=== PATIENT | female | born 1985 | race Caucasian/White ===

== ENCOUNTER 2017-04-07 17:52 | Inpatient (IN) | payer MEDICAID ==
[~2017-04-07] VITALS: Ht 154.9 cm; Wt 54.5 kg
[~2017-04-07 17:52] MED LIST: ATI1T PO; INSU100I8 SQ; LANTUS SQ; SODI650T29 PO; ZOF4I PO
[2017-04-07] MEDS ORDERED: normal saline 1000ML IV soln IV ONE (18:05)
[2017-04-07] MEDS ORDERED: ondansetron/PF 4mg/2ml inj IV ONE (18:05)
[2017-04-07 18:34] LABS: BASOPHILS % (AUTO) 0 % (0-1); EOSINOPHILS # (AUTO) 0.2 X10'3 (0-0.9); EOSINOPHILS % (AUTO) 1.1 % (0-6); HEMATOCRIT 47.1 % (35.0-45.0); HEMOGLOBIN 15.4 g/dl (12.0-16.0); LYMPHOCYTES % (AUTO) 5.1 % (21-51); MEAN CORPUSCULAR HEMOGLOBIN 30.1 PG (27.0-31.0); MEAN CORPUSCULAR HGB CONC 32.7 % (33.0-36.5); MEAN PLATELET VOLUME 7.8 FL (7.4-10.4); MONOCYTES % (AUTO) 5.1 % (2-12); NEUTROPHILS # (AUTO) 17.8 X10'3 (1.8-7.7); NEUTROPHILS % (AUTO) 88.7 % (42-75); PLATELET COUNT 409 X10'3 (140-440); RED BLOOD COUNT 5.12 X10'6 (4.20-5.60); RED CELL DISTRIBUTION WIDTH 14.9 % (11.5-14.5); WHITE BLOOD COUNT 20.1 X10'3 (4.5-11.0)
[2017-04-07 18:43] LABS: PROTHROMBIN TIME 10.2 SECONDS (9.0-12.0)
[2017-04-07 19:01] LABS: ALANINE AMINOTRANSFERASE 30 U/L (12-78); ALBUMIN 4.2 G/DL (3.4-5.0); ALKALINE PHOSPHATASE 110 IU/L (46-116); ANION GAP 27 (8-16); ASPARTATE AMINO TRANSFERASE 31 U/L (10-37); BILIRUBIN,TOTAL 0.7 MG/DL (0.1-1.0); BLOOD UREA NITROGEN 20 MG/DL (7-18); BUN/CREATININE RATIO 14.1 (6.6-38.0); CHLORIDE 93 MMOL/L (99-107); CREATININE 1.42 MG/DL (0.40-0.90); LIPASE 84 U/L (73-393); POTASSIUM 4.2 MMOL/L (3.5-5.1); SODIUM 128 MMOL/L (135-145); TOTAL PROTEIN 8.6 G/DL (6.4-8.2); eGFR 43 ML/MIN
[2017-04-07 19:03] LABS: ETHANOL < 0.010 GM/DL (0.0-0.010)
[2017-04-07 19:04] LABS: GLUCOSE 465 MG/DL (70-104); TOTAL CARBON DIOXIDE 8.4 MMOL/L (24-32)
[2017-04-07 19:23] LABS: TOTAL CELLS COUNTED 100
[2017-04-07 19:24] LABS: LARGE PLATELETS FEW; PLATELET ESTIMATE NORMAL
[2017-04-07] MEDS ORDERED: insulin regular, human 10 units/0.1 ml syringe SQ PRN (19:35)
[2017-04-07 20:01] LABS: MAGNESIUM 2.1 MG/DL (1.5-2.4); PHOSPHORUS 4.5 MG/DL (2.3-4.5)
[2017-04-07] MEDS: insulin regular, DKA only 100 UNIT in normal saline 100ml IV soln 99 ML IV SCH ×4 (20:01→22:15)
[2017-04-07] MEDS ORDERED: CefTRIAXone 2gm/NS 100ml IVPB 100 ML IV ONE (20:25)
[2017-04-07] MEDS ORDERED: NAPR500T4 PO (20:38)
[2017-04-07 20:45] LABS: ABG BASE EXCESS -19.3 mmol/L (-2.0-3.0); ABG HCO3 6.9 mmol/L (22.0-26.0); ABG OXYGEN SATURATION 97.9 % (95-98); ABG PCO2 (T) 18.9 mmHg (32.0-45.0); ABG PH (T) 7.182 (7.350-7.450); ALLEN'S TEST Positive; FCOHb 0.6 % (0.5-1.5); FMetHb 0.2 % (0.3-1.12); FO2Hb 97.1 % (94-100); PATIENT TEMPERATURE 36.9; TOTAL HEMOGLOBIN 13.3 G/dl (12.0-16.0)
[2017-04-07] MEDS ORDERED: temazepam 15mg capsule PO PRN (21:00)
[2017-04-07] MEDS ORDERED: dextrose 50%-water 50ml dispensing syringe IV PRN ×2 (22:10)
[2017-04-07] MEDS ORDERED: mag hydrox/Alum hydrox/simeth 30ml oral suspension PO PRN (22:10)
[2017-04-07] MEDS ORDERED: diphenhydrAMINE 50 mg/ml inj IV PRN (22:10)
[2017-04-07] MEDS ORDERED: acetaminophen 650mg rectal suppository RC PRN (22:10)
[2017-04-07] MEDS ORDERED: ondansetron/PF 4mg/2ml inj IV PRN (22:10)
[2017-04-07] MEDS ORDERED: diphenhydrAMINE 25mg capsule PO PRN (22:10)
[2017-04-07] MEDS ORDERED: glucagon, human recombinant 1mg kit SUBCUT PRN (22:10)
[2017-04-07] MEDS ORDERED: HYDROcodone/acetaminophen 5mg/325mg tablet PO PRN (22:10)
[2017-04-07] MEDS ORDERED: bisacodyl 10mg suppository rectal RC PRN (22:10)
[2017-04-07] MEDS ORDERED: MESSAGE TO PHARMACY PO ONE (22:10)
[2017-04-07] MEDS ORDERED: dextrose ORAL solution 15 GM/59 ML bottle PO PRN ×2 (22:10)
[2017-04-07] MEDS ORDERED: magnesium hydroxide 30ml (MOM) UD suspension PO PRN (22:10)
[2017-04-07] MEDS ORDERED: acetaminophen 325mg tablet PO PRN (22:10)
[2017-04-07] MEDS ORDERED: metoclopramide 5 mg/ml inj IV PRN (22:10)
[2017-04-07] MEDS ORDERED: dextrose 5%-1/2 normal saline 1,000 ML IV SCH (22:50)
[2017-04-08] VITALS (7 sets, daily range): BP systolic 83–108; BP diastolic 47–72
[2017-04-08] MEDS: normal saline 1000ml 1,000 ML IV SCH ×3 (00:55→18:06)
[2017-04-08] MEDS: azithromycin 250mg tablet PO SCH ×2 (01:04→21:17)
[2017-04-08] MEDS: potassium CL 20mEq in D5-1/2NS 1,000 ML IV SCH ×2 (01:44→08:23)
[2017-04-08 02:10] LABS: URINE HCG NEGATIVE (NEG)
[2017-04-08 02:11] LABS: CLARITY,URINE Clear (Clear); COLOR,URINE Yellow (Yellow); GLUCOSE, URINE >=1000 mg/dl (Neg); KETONES,URINE >=160 mg/dl (Neg); LEUKOCYTE ESTERASE ,URINE Negative (Neg); NITRITES, URINE Negative (Neg); OCCULT BLOOD,URINE Trace (Neg); PROTEIN,URINE 30 mg/dl (Neg); UROBILINOGEN,URINE 0.2 E.U/dL (0.2-1.0)
[2017-04-08 02:15] LABS: URINE AMPHETAMINE SCREEN NEGATIVE (Neg); URINE BARBITUATE SCREEN NEGATIVE (Neg); URINE BENZODIAZEPINES SCREEN NEGATIVE (Neg); URINE CANNABINOID SCREEN NEGATIVE (Neg); URINE COCAINE SCREEN POSITIVE (Neg); URINE METHADONE SCREEN NEGATIVE (Neg); URINE OPIATE SCREEN POSITIVE (Neg); URINE PHENCYCLIDINE SCREEN NEGATIVE (Neg)
[2017-04-08 02:17] LABS: UA COLLECTION TYPE CLN CATCH MIDSTREAM
[2017-04-08 02:24] LABS: FINE GRANULAR CAST 0-3 /LPF (NEGATIVE)
[2017-04-08 02:25] LABS: BACTERIA,URINE NONE SEEN /HPF (Neg); MUCUS STRANDS FEW /LPF (Neg); RBC,URINE 0-2 /HPF (0-2); SQUAMOUS EPITHELIAL CELL,UR MODERATE /LPF (FEW); WBC,URINE 0-4 /HPF (0-4)
[2017-04-08 03:19] LABS: ALANINE AMINOTRANSFERASE 21 U/L (12-78); ALBUMIN 2.7 G/DL (3.4-5.0); ALBUMIN/GLOBULIN RATIO 0.9 (1.1-1.5); ALKALINE PHOSPHATASE 68 IU/L (46-116); ANION GAP 9 (8-16); ASPARTATE AMINO TRANSFERASE 15 U/L (10-37); BILIRUBIN,TOTAL 0.2 MG/DL (0.1-1.0); BLOOD UREA NITROGEN 13 MG/DL (7-18); BUN/CREATININE RATIO 15.1 (6.6-38.0); CALCIUM 6.8 MG/DL (8.5-10.1); CHLORIDE 110 MMOL/L (99-107); CREATININE 0.86 MG/DL (0.40-0.90); GLUCOSE 222 MG/DL (70-104); PHOSPHORUS 1.7 MG/DL (2.3-4.5); POTASSIUM 3.5 MMOL/L (3.5-5.1); SODIUM 137 MMOL/L (135-145); TOTAL PROTEIN 5.7 G/DL (6.4-8.2); eGFR 76 ML/MIN
[2017-04-08] MEDS ORDERED: sodium phosphate inj. 30 MMOL in dextrose 5%-water 250 ML IV PRN (04:25)
[2017-04-08] MEDS ORDERED: Neutra Phos packet PO PRN (04:25)
[2017-04-08] MEDS ORDERED: sodium phosphate inj. 15 MMOL in dextrose 5%-water 150 ML IV PRN (04:25)
[2017-04-08 07:03] LABS: BASOPHILS % (AUTO) 0.2 % (0-1); EOSINOPHILS # (AUTO) 0.2 X10'3 (0-0.9); EOSINOPHILS % (AUTO) 2.1 % (0-6); HEMATOCRIT 36.4 % (35.0-45.0); HEMOGLOBIN 12.1 g/dl (12.0-16.0); LYMPHOCYTES % (AUTO) 17.9 % (21-51); MEAN CORPUSCULAR HEMOGLOBIN 30.5 PG (27.0-31.0); MEAN CORPUSCULAR HGB CONC 33.2 % (33.0-36.5); MEAN CORPUSCULAR VOLUME 91.9 FL (78-98); MEAN PLATELET VOLUME 7.9 FL (7.4-10.4); MONOCYTES % (AUTO) 8.6 % (2-12); NEUTROPHILS # (AUTO) 8.1 X10'3 (1.8-7.7); NEUTROPHILS % (AUTO) 71.2 % (42-75); PLATELET COUNT 334 X10'3 (140-440); RED BLOOD COUNT 3.96 X10'6 (4.20-5.60); RED CELL DISTRIBUTION WIDTH 14.5 % (11.5-14.5); WHITE BLOOD COUNT 11.4 X10'3 (4.5-11.0)
[2017-04-08] MEDS: methylPREDNISolone sod succ 125mg/2ml vial IV SCH ×2 (07:12→20:00)
[2017-04-08] MEDS: lactobacillus rhamnosus 10,000 MMU CELLS/CAPSULE PO SCH ×2 (07:12→17:33)
[2017-04-08] MEDS: docusate sod 100mg capsule PO SCH ×2 (07:16→21:17)
[2017-04-08] MEDS: heparin, porcine 5000 units/ml vial SQ SCH ×2 (07:16→21:16)
[2017-04-08] MEDS ORDERED: pantoprazole 40mg Tablet.DR PO SCH (07:30)
[2017-04-08] MEDS: insulin Lispro (HumaLOG) vial - multi-dose SQ SCH ×4 (09:13→22:08)
[2017-04-08] MEDS: pantoprazole 40 MG vial IV SCH (11:45)
[2017-04-08] MEDS: mag hydrox/Alum hydrox/simeth 30ml oral suspension PO SCH ×3 (11:45→21:18)
[2017-04-08] MEDS: HYDROcodone/acetaminophen 10/325mg tab PO PRN ×2 (13:45→17:59)
[2017-04-08] MEDS: cefTRIAXone 1g/NS 100ml IVPB 100 ML IV SCH (21:17)
[2017-04-08] MEDS ORDERED: Potassium Cl inj 20 MEQ in dextrose 5%-1/2 normal saline 990 ML IV SCH (22:50)
[2017-04-09 03:00] VITALS: BP 91/53
[2017-04-09] MEDS: normal saline 1000ml 1,000 ML IV SCH ×7 (04:06→21:11)
[2017-04-09] MEDS: HYDROcodone/acetaminophen 10/325mg tab PO PRN (04:18)
[2017-04-09 06:00] VITALS: BP 82/45
[2017-04-09 06:23] LABS: BASOPHILS % (AUTO) 0.1 % (0-1); EOSINOPHILS # (AUTO) 0.1 X10'3 (0-0.9); HEMATOCRIT 40.4 % (35.0-45.0); HEMOGLOBIN 13.3 g/dl (12.0-16.0); LYMPHOCYTES # (AUTO) 0.5 X10'3 (1.1-4.8); LYMPHOCYTES % (AUTO) 3.5 % (21-51); MEAN CORPUSCULAR HEMOGLOBIN 30.8 PG (27.0-31.0); MEAN CORPUSCULAR VOLUME 93.4 FL (78-98); MEAN PLATELET VOLUME 8.2 FL (7.4-10.4); MONOCYTES # (AUTO) 0.1 X10'3 (0-0.9); MONOCYTES % (AUTO) 0.9 % (2-12); NEUTROPHILS % (AUTO) 94.5 % (42-75); PLATELET COUNT 335 X10'3 (140-440); RED BLOOD COUNT 4.32 X10'6 (4.20-5.60); RED CELL DISTRIBUTION WIDTH 15.2 % (11.5-14.5); WHITE BLOOD COUNT 14.8 X10'3 (4.5-11.0)
[2017-04-09 06:56] LABS: ALANINE AMINOTRANSFERASE 30 U/L (12-78); ALBUMIN 2.9 G/DL (3.4-5.0); ALBUMIN/GLOBULIN RATIO 0.9 (1.1-1.5); ALKALINE PHOSPHATASE 76 IU/L (46-116); ANION GAP 23 (8-16); ASPARTATE AMINO TRANSFERASE 19 U/L (10-37); BILIRUBIN,TOTAL 0.4 MG/DL (0.1-1.0); BLOOD UREA NITROGEN 13 MG/DL (7-18); BUN/CREATININE RATIO 17.8 (6.6-38.0); CALCIUM 8.1 MG/DL (8.5-10.1); CHLORIDE 104 MMOL/L (99-107); CREATININE 0.73 MG/DL (0.40-0.90); GLUCOSE 431 MG/DL (70-104); POTASSIUM 4.2 MMOL/L (3.5-5.1); SODIUM 137 MMOL/L (135-145); TOTAL PROTEIN 6.3 G/DL (6.4-8.2); eGFR > 90 ML/MIN
[2017-04-09 07:05] LABS: TOTAL CARBON DIOXIDE 10.3 MMOL/L (24-32)
[2017-04-09] MEDS: mag hydrox/Alum hydrox/simeth 30ml oral suspension PO SCH ×4 (07:38→21:06)
[2017-04-09] MEDS: docusate sod 100mg capsule PO SCH ×2 (07:38→21:05)
[2017-04-09] MEDS: methylPREDNISolone sod succ 125mg/2ml vial IV SCH (07:38)
[2017-04-09] MEDS: pantoprazole 40 MG vial IV SCH (07:39)
[2017-04-09] MEDS: lactobacillus rhamnosus 10,000 MMU CELLS/CAPSULE PO SCH ×2 (07:39→16:40)
[2017-04-09] MEDS: heparin, porcine 5000 units/ml vial SQ SCH ×2 (07:46→21:07)
[2017-04-09] MEDS ORDERED: Neutra Phos packet PO PRN (08:10)
[2017-04-09] MEDS ORDERED: sodium phosphate inj. 30 MMOL in dextrose 5%-water 250 ML IV PRN (08:10)
[2017-04-09] MEDS ORDERED: potassium CL 20mEq in D5-1/2NS 1,000 ML IV PRN (08:10)
[2017-04-09] MEDS ORDERED: sodium bicarbonate (8.4%) inj. 50 MEQ in sodium chloride 0.45% 500ml 250 ML IV PRN (08:10)
[2017-04-09] MEDS ORDERED: potassium Cl 20 mEq SR tablet PO PRN ×2 (08:10)
[2017-04-09] MEDS ORDERED: insulin regular, human 10 units/0.1 ml syringe SQ PRN (08:10)
[2017-04-09] MEDS ORDERED: potassium Cl 40MEQ/NS 500ml 500 ML IV PRN ×2 (08:10)
[2017-04-09] MEDS ORDERED: sodium bicarbonate (8.4%) inj. 100 MEQ in sodium chloride 0.45% 500ml 500 ML IV PRN (08:10)
[2017-04-09] MEDS ORDERED: sodium phosphate inj. 15 MMOL in dextrose 5%-water 150 ML IV PRN (08:10)
[2017-04-09 09:37] LABS: ALBUMIN 3.4 G/DL (3.4-5.0); ANION GAP 25 (8-16); BLOOD UREA NITROGEN 16 MG/DL (7-18); CALCIUM 8.2 MG/DL (8.5-10.1); CHLORIDE 100 MMOL/L (99-107); CREATININE 0.94 MG/DL (0.40-0.90); PHOSPHORUS 2.9 MG/DL (2.3-4.5); POTASSIUM 4.6 MMOL/L (3.5-5.1); SODIUM 132 MMOL/L (135-145); eGFR 69 ML/MIN
[2017-04-09 09:41] LABS: GLUCOSE 509 MG/DL (70-104); TOTAL CARBON DIOXIDE 7.1 MMOL/L (24-32)
[2017-04-09] MEDS: insulin regular, DKA only 100 UNIT in normal saline 100ml IV soln 99 ML IV SCH ×8 (09:49→19:13)
[2017-04-09] MEDS: LORazepam 0.5 MG tablet PO PRN (10:43)
[2017-04-09 11:00] VITALS: BP 100/48
[2017-04-09 13:09] LABS: ALBUMIN 3.2 G/DL (3.4-5.0); ANION GAP 23 (8-16); BLOOD UREA NITROGEN 18 MG/DL (7-18); BUN/CREATININE RATIO 17.3 (6.6-38.0); CALCIUM 7.7 MG/DL (8.5-10.1); CHLORIDE 104 MMOL/L (99-107); CREATININE 1.04 MG/DL (0.40-0.90); POTASSIUM 4.1 MMOL/L (3.5-5.1); SODIUM 134 MMOL/L (135-145); eGFR 61 ML/MIN
[2017-04-09 13:10] LABS: GLUCOSE 483 MG/DL (70-104); TOTAL CARBON DIOXIDE 7.1 MMOL/L (24-32)
[2017-04-09 15:00] VITALS: BP 100/49
[2017-04-09] MEDS ORDERED: dextrose 5%-1/2 normal saline 1,000 ML IV SCH (15:40)
[2017-04-09 15:57] LABS: ALBUMIN 2.6 G/DL (3.4-5.0); ANION GAP 11 (8-16); BLOOD UREA NITROGEN 14 MG/DL (7-18); BUN/CREATININE RATIO 18.4 (6.6-38.0); CALCIUM 7.3 MG/DL (8.5-10.1); CHLORIDE 113 MMOL/L (99-107); CREATININE 0.76 MG/DL (0.40-0.90); GLUCOSE 243 MG/DL (70-104); POTASSIUM 3.6 MMOL/L (3.5-5.1); SODIUM 139 MMOL/L (135-145); eGFR 88 ML/MIN
[2017-04-09 16:02] LABS: TOTAL CARBON DIOXIDE 14.6 MMOL/L (24-32)
[2017-04-09 17:04] LABS: PHOSPHORUS 0.9 MG/DL (2.3-4.5)
[2017-04-09 19:00] VITALS: BP 90/52
[2017-04-09 19:12] LABS: ALBUMIN 2.8 G/DL (3.4-5.0); ANION GAP 9 (8-16); BLOOD UREA NITROGEN 13 MG/DL (7-18); BUN/CREATININE RATIO 18.1 (6.6-38.0); CALCIUM 7.4 MG/DL (8.5-10.1); CHLORIDE 113 MMOL/L (99-107); CREATININE 0.72 MG/DL (0.40-0.90); GLUCOSE 174 MG/DL (70-104); POTASSIUM 3.5 MMOL/L (3.5-5.1); SODIUM 140 MMOL/L (135-145); TOTAL CARBON DIOXIDE 18.2 MMOL/L (24-32); eGFR > 90 ML/MIN
[2017-04-09] MEDS ORDERED: dextrose 50%-water 50ml dispensing syringe IV PRN ×2 (19:20)
[2017-04-09] MEDS ORDERED: glucagon, human recombinant 1mg kit SUBCUT PRN (19:20)
[2017-04-09] MEDS ORDERED: dextrose ORAL solution 15 GM/59 ML bottle PO PRN ×2 (19:20)
[2017-04-09] MEDS: insulin Lispro (HumaLOG) vial - multi-dose SQ SCH (19:35)
[2017-04-09] MEDS ORDERED: Insulin Detemir pen SQ SCH (21:00)
[2017-04-09] MEDS: azithromycin 250mg tablet PO SCH (21:06)
[2017-04-09] MEDS: cefTRIAXone 1g/NS 100ml IVPB 100 ML IV SCH (21:06)
[2017-04-09 21:51] LABS: ALBUMIN 2.5 G/DL (3.4-5.0); ANION GAP 8 (8-16); BLOOD UREA NITROGEN 13 MG/DL (7-18); BUN/CREATININE RATIO 21.7 (6.6-38.0); CALCIUM 7.1 MG/DL (8.5-10.1); CHLORIDE 111 MMOL/L (99-107); GLUCOSE 216 MG/DL (70-104); POTASSIUM 3.8 MMOL/L (3.5-5.1); SODIUM 138 MMOL/L (135-145); eGFR > 90 ML/MIN
[2017-04-09 23:00] VITALS: BP 94/57
[2017-04-10 03:00] VITALS: BP 103/64
[2017-04-10 05:56] LABS: BASOPHILS % (AUTO) 0.3 % (0-1); EOSINOPHILS # (AUTO) 0.2 X10'3 (0-0.9); EOSINOPHILS % (AUTO) 1.6 % (0-6); HEMATOCRIT 34.6 % (35.0-45.0); HEMOGLOBIN 11.4 g/dl (12.0-16.0); LYMPHOCYTES # (AUTO) 1.6 X10'3 (1.1-4.8); LYMPHOCYTES % (AUTO) 12.1 % (21-51); MEAN CORPUSCULAR HEMOGLOBIN 30.2 PG (27.0-31.0); MEAN CORPUSCULAR HGB CONC 32.8 % (33.0-36.5); MEAN CORPUSCULAR VOLUME 92.2 FL (78-98); MEAN PLATELET VOLUME 7.9 FL (7.4-10.4); MONOCYTES # (AUTO) 0.7 X10'3 (0-0.9); PLATELET COUNT 269 X10'3 (140-440); RED BLOOD COUNT 3.75 X10'6 (4.20-5.60); RED CELL DISTRIBUTION WIDTH 15.4 % (11.5-14.5); WHITE BLOOD COUNT 13.5 X10'3 (4.5-11.0)
[2017-04-10 06:00] VITALS: BP 96/60
[2017-04-10 06:29] LABS: ALANINE AMINOTRANSFERASE 19 U/L (12-78); ALBUMIN 2.4 G/DL (3.4-5.0); ALBUMIN/GLOBULIN RATIO 0.9 (1.1-1.5); ALKALINE PHOSPHATASE 57 IU/L (46-116); ANION GAP 9 (8-16); ASPARTATE AMINO TRANSFERASE 9 U/L (10-37); BILIRUBIN,TOTAL 0.2 MG/DL (0.1-1.0); BLOOD UREA NITROGEN 18 MG/DL (7-18); BUN/CREATININE RATIO 26.5 (6.6-38.0); CALCIUM 7.6 MG/DL (8.5-10.1); CHLORIDE 114 MMOL/L (99-107); CREATININE 0.68 MG/DL (0.40-0.90); GLUCOSE 157 MG/DL (70-104); PHOSPHORUS 1.7 MG/DL (2.3-4.5); POTASSIUM 3.5 MMOL/L (3.5-5.1); SODIUM 141 MMOL/L (135-145); TOTAL CARBON DIOXIDE 17.9 MMOL/L (24-32); TOTAL PROTEIN 5.2 G/DL (6.4-8.2); eGFR > 90 ML/MIN
[2017-04-10] MEDS ORDERED: K and/or MAG REPLACEMENT MC SCH (08:00)
[2017-04-10] MEDS: heparin, porcine 5000 units/ml vial SQ SCH (08:00)
[2017-04-10] MEDS: lactobacillus rhamnosus 10,000 MMU CELLS/CAPSULE PO SCH (08:26)
[2017-04-10] MEDS: pantoprazole 40 MG vial IV SCH (08:26)
[2017-04-10] MEDS: mag hydrox/Alum hydrox/simeth 30ml oral suspension PO SCH ×2 (08:26→11:19)
[2017-04-10] MEDS: docusate sod 100mg capsule PO SCH (08:26)
[2017-04-10] MEDS: insulin Lispro (HumaLOG) vial - multi-dose SQ SCH ×2 (08:44→13:17)
[2017-04-10] MEDS: normal saline 1000ml 1,000 ML IV SCH (08:55)
[2017-04-10 11:00] VITALS: BP 121/75
[2017-04-10] MEDS: LORazepam 0.5 MG tablet PO PRN (11:19)
[2017-04-10] MEDS ORDERED: AZI25OT PO (11:47)
[2017-04-10] MEDS ORDERED: AZIT-63 PO (11:47)
[2017-04-10] MEDS ORDERED: ATI1T PO (11:47)
[2017-04-11] MEDS ORDERED: LACTOBACILLUS RHAMNOSUS GG 15 billion unit sprinkle caps PO SCH (07:30)
== END 2017-04-10 15:00 | disposition home or self-care (01) | DRG 420 ==
LOC: ER 17:54 → ED HOLD 22:13 → EDBEDREQ 22:42 → PCU 3S 04-08 00:50
PROVIDERS: ADMIT Family Medicine; ATTEND Family Medicine
DX: E10.10 Type 1 diabetes mellitus with ketoacidosis without coma (principal); N17.0 Acute kidney failure with tubular necrosis; R65.11 Systemic inflammatory response syndrome (SIRS) of non-infectious origin with acute organ dysfunction; E87.4 Mixed disorder of acid-base balance; E10.42 Type 1 diabetes mellitus with diabetic polyneuropathy; G89.29 Other chronic pain; E87.1 Hypo-osmolality and hyponatremia; E86.1 Hypovolemia; E83.39 Other disorders of phosphorus metabolism; E86.0 Dehydration; E87.6 Hypokalemia; F41.1 Generalized anxiety disorder; J45.909 Unspecified asthma, uncomplicated; K29.70 Gastritis, unspecified, without bleeding; F14.90 Cocaine use, unspecified, uncomplicated; F12.90 Cannabis use, unspecified, uncomplicated; F17.210 Nicotine dependence, cigarettes, uncomplicated; Z79.4 Long term (current) use of insulin; Z79.899 Other long term (current) drug therapy; Z88.5 Allergy status to narcotic agent; Z83.3 Family history of diabetes mellitus; Z81.1 Family history of alcohol abuse and dependence
CPT/HCPCS: 36415; 36600; 71045; 80048; 80053; 80305; 80320; 81001; 81025; 82803; 82948; 83605; 83690; 83735; 84100; 84145; 84443; 85018; 85025; 85610; 87040; 87070; 93005; 94760; 96361; 96365; 96372; 96375; 96376; 99285; C9113; J0696; J1644; J1815; J2270; J2405; J2930; J7030; J7060

== ENCOUNTER 2017-05-27 04:52 | Inpatient (IN) | payer MEDICAID ==
[~2017-05-27] VITALS: Ht 154.9 cm; Wt 51.8 kg
[~2017-05-27 04:52] MED LIST changes: +AZI25OT PO; +NAPR500T4 PO; -SODI650T29 PO
[2017-05-27] MEDS ORDERED: insulin regular, DKA only 100 UNIT in normal saline 100ml IV soln 99 ML IV SCH ×2 (05:03)
[2017-05-27] MEDS ORDERED: normal saline 1000ML IV soln IV ONE (05:05)
[2017-05-27] MEDS ORDERED: insulin regular, human 10 units/0.1 ml syringe SQ PRN (05:05)
[2017-05-27 05:49] LABS: BASOPHILS % (AUTO) 0.2 % (0-1); EOSINOPHILS # (AUTO) 0.1 X10'3 (0-0.9); EOSINOPHILS % (AUTO) 1.3 % (0-6); HEMOGLOBIN 16.3 g/dl (12.0-16.0); LYMPHOCYTES # (AUTO) 1.3 X10'3 (1.1-4.8); LYMPHOCYTES % (AUTO) 13.8 % (21-51); MEAN CORPUSCULAR HEMOGLOBIN 30.1 PG (27.0-31.0); MEAN CORPUSCULAR HGB CONC 33.2 % (33.0-36.5); MEAN CORPUSCULAR VOLUME 90.7 FL (78-98); MEAN PLATELET VOLUME 7.4 FL (7.4-10.4); MONOCYTES # (AUTO) 0.5 X10'3 (0-0.9); MONOCYTES % (AUTO) 5.2 % (2-12); NEUTROPHILS # (AUTO) 7.7 X10'3 (1.8-7.7); NEUTROPHILS % (AUTO) 79.5 % (42-75); PLATELET COUNT 409 X10'3 (140-440); RED CELL DISTRIBUTION WIDTH 15.3 % (11.5-14.5); WHITE BLOOD COUNT 9.7 X10'3 (4.5-11.0)
[2017-05-27 06:02] LABS: ALANINE AMINOTRANSFERASE 22 U/L (12-78); ALBUMIN 4.5 G/DL (3.4-5.0); ALKALINE PHOSPHATASE 90 IU/L (46-116); ANION GAP 29 (8-16); ASPARTATE AMINO TRANSFERASE 12 U/L (10-37); BILIRUBIN,TOTAL 0.3 MG/DL (0.1-1.0); BLOOD UREA NITROGEN 15 MG/DL (7-18); BUN/CREATININE RATIO 13.6 (6.6-38.0); CALCIUM 8.8 MG/DL (8.5-10.1); CHLORIDE 93 MMOL/L (99-107); GLUCOSE 422 MG/DL (70-104); MAGNESIUM 2.1 MG/DL (1.5-2.4); PHOSPHORUS 4.6 MG/DL (2.3-4.5); POTASSIUM 4.6 MMOL/L (3.5-5.1); SODIUM 130 MMOL/L (135-145); TOTAL PROTEIN 9.1 G/DL (6.4-8.2); eGFR 58 ML/MIN
[2017-05-27] MEDS ORDERED: ketorolac trometh. 30mg/ml inj. IV ONE (06:05)
[2017-05-27 06:06] LABS: TOTAL CARBON DIOXIDE 8.4 MMOL/L (24-32)
[2017-05-27] MEDS ORDERED: BASAGLAR (06:20)
[2017-05-27] MEDS ORDERED: [UNRECOGNIZED DRUG - REMARK] (06:20)
[2017-05-27] MEDS ORDERED: [UNRECOGNIZED DRUG - OTHER] (06:20)
[2017-05-27] MEDS ORDERED: CEFDINIR 300 MG (06:20)
[2017-05-27] MEDS ORDERED: CLINDAMYCIN HCL 300 MG (06:20)
[2017-05-27 06:41] LABS: ABG BASE EXCESS -23.2 mmol/L (-2.0-3.0); ABG HCO3 4.1 mmol/L (22.0-26.0); ABG OXYGEN SATURATION 98.5 % (95-98); ABG PCO2 (T) 13.6 mmHg (32.0-45.0); ABG PH (T) 7.102 (7.350-7.450); ABG PO2 (T) 134.5 mmHg (83-108); ALLEN'S TEST Positive; FCOHb 0.9 % (0.5-1.5); FMetHb 0.3 % (0.3-1.12); FO2Hb 97.3 % (94-100)
[2017-05-27] MEDS ORDERED: potassium CL 20mEq in D5-1/2NS 1,000 ML IV SCH (07:05)
[2017-05-27] MEDS ORDERED: MESSAGE TO PHARMACY PO ONE (07:50)
[2017-05-27] MEDS ORDERED: glucagon, human recombinant 1mg kit SUBCUT PRN (07:50)
[2017-05-27] MEDS ORDERED: ondansetron/PF 4mg/2ml inj IV PRN (07:50)
[2017-05-27] MEDS ORDERED: magnesium hydroxide 30ml (MOM) UD suspension PO PRN (07:50)
[2017-05-27] MEDS ORDERED: dextrose ORAL solution 15 GM/59 ML bottle PO PRN ×2 (07:50)
[2017-05-27] MEDS ORDERED: insulin Lispro (HumaLOG) vial - multi-dose SQ SCH (07:50)
[2017-05-27] MEDS ORDERED: mag hydrox/Alum hydrox/simeth 30ml oral suspension PO PRN (07:50)
[2017-05-27] MEDS ORDERED: acetaminophen 325mg tablet PO PRN (07:50)
[2017-05-27] MEDS ORDERED: dextrose 50%-water 50ml dispensing syringe IV PRN ×2 (07:50)
[2017-05-27 08:32] LABS: CLARITY,URINE CLOUDY (Clear); COLOR,URINE STRAW (Yellow); GLUCOSE, URINE 500 mg/dl (Neg); KETONES,URINE >=80 mg/dl (Neg); LEUKOCYTE ESTERASE ,URINE NEGATIVE (Neg); NITRITES, URINE NEGATIVE (Neg); OCCULT BLOOD,URINE TRACE-INTACT (Neg); PH,URINE 5.5 (4.8-8.0); PROTEIN,URINE 30 mg/dl (Neg); URINE HCG NEGATIVE (NEG); UROBILINOGEN,URINE 0.2 E.U/dL (0.2-1.0)
[2017-05-27 08:33] LABS: UA COLLECTION TYPE OTHER
[2017-05-27 08:37] LABS: SQUAMOUS EPITHELIAL CELL,UR MANY /LPF (FEW)
[2017-05-27 08:42] LABS: URINE AMPHETAMINE SCREEN NEGATIVE (Neg); URINE BARBITUATE SCREEN NEGATIVE (Neg); URINE BENZODIAZEPINES SCREEN NEGATIVE (Neg); URINE CANNABINOID SCREEN NEGATIVE (Neg); URINE COCAINE SCREEN NEGATIVE (Neg); URINE METHADONE SCREEN NEGATIVE (Neg); URINE OPIATE SCREEN NEGATIVE (Neg); URINE PHENCYCLIDINE SCREEN NEGATIVE (Neg)
[2017-05-27 08:43] LABS: MUCUS STRANDS FEW /LPF (Neg)
[2017-05-27 08:47] LABS: BACTERIA,URINE 1+ /HPF (Neg)
[2017-05-27 08:51] LABS: RBC,URINE 0-2 /HPF (0-2); WBC,URINE 0-4 /HPF (0-4)
[2017-05-27 08:52] LABS: TRANSITIONAL EPI CELLS,URINE MODERATE /HPF
[2017-05-27] MEDS: potassium CL 20mEq in D5-1/2NS 1,000 ML IV SCH ×2 (09:41→15:08)
[2017-05-27 10:34] VITALS: BP 109/60
[2017-05-27] MEDS: K and/or MAG REPLACEMENT MC SCH (11:00)
[2017-05-27] MEDS ORDERED: sodium bicarbonate (8.4%) inj. 50 MEQ in sodium chloride 0.45% 500ml 250 ML IV PRN (11:01)
[2017-05-27] MEDS: normal saline 1000ml 1,000 ML IV SCH ×2 (11:01→12:26)
[2017-05-27] MEDS ORDERED: potassium CL 20mEq in D5-1/2NS 1,000 ML IV PRN (11:01)
[2017-05-27] MEDS ORDERED: sodium bicarbonate (8.4%) inj. 100 MEQ in sodium chloride 0.45% 500ml 500 ML IV PRN (11:01)
[2017-05-27] MEDS ORDERED: potassium Cl 40MEQ/NS 500ml 500 ML IV PRN ×2 (11:05)
[2017-05-27] MEDS ORDERED: potassium Cl 20 mEq SR tablet PO PRN ×2 (11:05)
[2017-05-27] MEDS ORDERED: sodium phosphate inj. 15 MMOL in dextrose 5%-water 150 ML IV PRN (11:05)
[2017-05-27] MEDS ORDERED: sodium phosphate inj. 30 MMOL in dextrose 5%-water 250 ML IV PRN (11:05)
[2017-05-27] MEDS ORDERED: Neutra Phos packet PO PRN (11:05)
[2017-05-27] MEDS ORDERED: ketorolac trometh. 30mg/ml inj. IV PRN (11:35)
[2017-05-27 11:54] LABS: ALANINE AMINOTRANSFERASE 23 U/L (12-78); ALBUMIN/GLOBULIN RATIO 0.9 (1.1-1.5); ALKALINE PHOSPHATASE 57 IU/L (46-116); ANION GAP 19 (8-16); ASPARTATE AMINO TRANSFERASE 14 U/L (10-37); BILIRUBIN,TOTAL 0.4 MG/DL (0.1-1.0); BLOOD UREA NITROGEN 10 MG/DL (7-18); BUN/CREATININE RATIO 13.2 (6.6-38.0); CALCIUM 7.1 MG/DL (8.5-10.1); CHLORIDE 101 MMOL/L (99-107); CREATININE 0.76 MG/DL (0.40-0.90); GLUCOSE 340 MG/DL (70-104); PHOSPHORUS 2.5 MG/DL (2.3-4.5); POTASSIUM 4.2 MMOL/L (3.5-5.1); SODIUM 131 MMOL/L (135-145); TOTAL PROTEIN 6.2 G/DL (6.4-8.2); eGFR 88 ML/MIN
[2017-05-27 11:56] LABS: TOTAL CARBON DIOXIDE 11.5 MMOL/L (24-32)
[2017-05-27] MEDS: insulin regular, DKA only 100 UNIT in normal saline 100ml IV soln 99 ML IV SCH ×6 (12:34→23:17)
[2017-05-27 15:00] VITALS: BP 104/62
[2017-05-27 16:08] LABS: ANION GAP 13 (8-16); BLOOD UREA NITROGEN 11 MG/DL (7-18); BUN/CREATININE RATIO 15.5 (6.6-38.0); CALCIUM 7.3 MG/DL (8.5-10.1); CHLORIDE 106 MMOL/L (99-107); CREATININE 0.71 MG/DL (0.40-0.90); GLUCOSE 206 MG/DL (70-104); PHOSPHORUS 2.2 MG/DL (2.3-4.5); POTASSIUM 3.7 MMOL/L (3.5-5.1); SODIUM 134 MMOL/L (135-145); eGFR > 90 ML/MIN
[2017-05-27 16:09] LABS: ALBUMIN 2.8 G/DL (3.4-5.0)
[2017-05-27 16:13] LABS: TOTAL CARBON DIOXIDE 14.9 MMOL/L (24-32)
[2017-05-27 19:00] VITALS: BP 98/55
[2017-05-27 19:52] LABS: ALBUMIN 2.7 G/DL (3.4-5.0); ANION GAP 12 (8-16); BLOOD UREA NITROGEN 12 MG/DL (7-18); CALCIUM 7.2 MG/DL (8.5-10.1); CHLORIDE 108 MMOL/L (99-107); GLUCOSE 173 MG/DL (70-104); PHOSPHORUS 2.3 MG/DL (2.3-4.5); SODIUM 135 MMOL/L (135-145); TOTAL CARBON DIOXIDE 15.1 MMOL/L (24-32); eGFR > 90 ML/MIN
[2017-05-27 19:55] LABS: POTASSIUM 3.8 MMOL/L (3.5-5.1)
[2017-05-27] MEDS: morphine 2 MG/ML inj. syringe IV PRN ×2 (19:55→22:27)
[2017-05-27] MEDS ORDERED: insulin glargine (Lantus) pen - multi-dose SQ SCH (21:00)
[2017-05-27 23:00] VITALS: BP 96/57
[2017-05-27 23:59] LABS: ALBUMIN 2.5 G/DL (3.4-5.0); ANION GAP 9 (8-16); BLOOD UREA NITROGEN 10 MG/DL (7-18); BUN/CREATININE RATIO 18.2 (6.6-38.0); CALCIUM 7.2 MG/DL (8.5-10.1); CHLORIDE 110 MMOL/L (99-107); CREATININE 0.55 MG/DL (0.40-0.90); GLUCOSE 91 MG/DL (70-104); POTASSIUM 3.4 MMOL/L (3.5-5.1); SODIUM 138 MMOL/L (135-145); TOTAL CARBON DIOXIDE 18.7 MMOL/L (24-32); eGFR > 90 ML/MIN
[2017-05-28 03:00] VITALS: BP 95/59
[2017-05-28 05:38] LABS: ALBUMIN 2.4 G/DL (3.4-5.0); ANION GAP 11 (8-16); BLOOD UREA NITROGEN 7 MG/DL (7-18); BUN/CREATININE RATIO 15.2 (6.6-38.0); CALCIUM 7.3 MG/DL (8.5-10.1); CHLORIDE 110 MMOL/L (99-107); CREATININE 0.46 MG/DL (0.40-0.90); GLUCOSE 108 MG/DL (70-104); MAGNESIUM 1.6 MG/DL (1.5-2.4); PHOSPHORUS 2.3 MG/DL (2.3-4.5); POTASSIUM 3.4 MMOL/L (3.5-5.1); SODIUM 140 MMOL/L (135-145); TOTAL CARBON DIOXIDE 19.4 MMOL/L (24-32); eGFR > 90 ML/MIN
[2017-05-28] MEDS: insulin regular, DKA only 100 UNIT in normal saline 100ml IV soln 99 ML IV SCH ×2 (06:38)
[2017-05-28 07:00] VITALS: BP 98/61
[2017-05-28] MEDS: K and/or MAG REPLACEMENT MC SCH (08:00)
[2017-05-28] MEDS ORDERED: glucagon, human recombinant 1mg kit SUBCUT PRN (08:25)
[2017-05-28] MEDS ORDERED: dextrose 50%-water 50ml dispensing syringe IV PRN ×2 (08:25)
[2017-05-28] MEDS ORDERED: dextrose ORAL solution 15 GM/59 ML bottle PO PRN ×2 (08:25)
[2017-05-28] MEDS ORDERED: MESSAGE TO PHARMACY PO ONE (08:25)
[2017-05-28 09:13] LABS: BASOPHILS # (AUTO) 0.1 X10'3 (0-0.2); BASOPHILS % (AUTO) 1.9 % (0-1); EOSINOPHILS % (AUTO) 0.7 % (0-6); HEMATOCRIT 41.4 % (35.0-45.0); HEMOGLOBIN 14.1 g/dl (12.0-16.0); LYMPHOCYTES # (AUTO) 1.8 X10'3 (1.1-4.8); LYMPHOCYTES % (AUTO) 26.7 % (21-51); MEAN CORPUSCULAR HEMOGLOBIN 29.9 PG (27.0-31.0); MEAN CORPUSCULAR HGB CONC 33.9 % (33.0-36.5); MEAN CORPUSCULAR VOLUME 88.2 FL (78-98); MEAN PLATELET VOLUME 7.7 FL (7.4-10.4); MONOCYTES # (AUTO) 0.6 X10'3 (0-0.9); MONOCYTES % (AUTO) 8.6 % (2-12); NEUTROPHILS # (AUTO) 4.1 X10'3 (1.8-7.7); NEUTROPHILS % (AUTO) 62.1 % (42-75); PLATELET COUNT 317 X10'3 (140-440); RED CELL DISTRIBUTION WIDTH 15.1 % (11.5-14.5); WHITE BLOOD COUNT 6.6 X10'3 (4.5-11.0)
[2017-05-28 09:16] LABS: ALANINE AMINOTRANSFERASE 19 U/L (12-78); ALBUMIN 2.8 G/DL (3.4-5.0); ALBUMIN/GLOBULIN RATIO 0.8 (1.1-1.5); ALKALINE PHOSPHATASE 52 IU/L (46-116); ANION GAP 8 (8-16); ASPARTATE AMINO TRANSFERASE 20 U/L (10-37); BILIRUBIN,TOTAL 0.4 MG/DL (0.1-1.0); BLOOD UREA NITROGEN 7 MG/DL (7-18); BUN/CREATININE RATIO 11.9 (6.6-38.0); CALCIUM 7.7 MG/DL (8.5-10.1); CHLORIDE 110 MMOL/L (99-107); CREATININE 0.59 MG/DL (0.40-0.90); GLUCOSE 236 MG/DL (70-104); POTASSIUM 3.7 MMOL/L (3.5-5.1); SODIUM 138 MMOL/L (135-145); TOTAL CARBON DIOXIDE 20.1 MMOL/L (24-32); TOTAL PROTEIN 6.2 G/DL (6.4-8.2); eGFR > 90 ML/MIN
[2017-05-28] MEDS: insulin Lispro (HumaLOG) vial - multi-dose SQ SCH ×2 (09:47→12:59)
[2017-05-28 11:00] VITALS: BP 101/59
[2017-05-28] MEDS ORDERED: insulin glargine (Lantus) pen - multi-dose SQ SCH (21:00)
== END 2017-05-28 14:17 | disposition home or self-care (01) | DRG 469 ==
LOC: ER 04:53 → ED HOLD 07:49 → EDBEDREQ 09:41 → PCU 3S 10:26
PROVIDERS: ADMIT Internal Medicine; ATTEND Internal Medicine
DX: N17.0 Acute kidney failure with tubular necrosis (principal); E10.10 Type 1 diabetes mellitus with ketoacidosis without coma; E87.4 Mixed disorder of acid-base balance; E87.1 Hypo-osmolality and hyponatremia; J45.909 Unspecified asthma, uncomplicated; F41.9 Anxiety disorder, unspecified; E87.6 Hypokalemia; E10.42 Type 1 diabetes mellitus with diabetic polyneuropathy; G89.29 Other chronic pain; K29.00 Acute gastritis without bleeding; Z88.5 Allergy status to narcotic agent; Z79.4 Long term (current) use of insulin; Z79.899 Other long term (current) drug therapy; Z87.891 Personal history of nicotine dependence
CPT/HCPCS: 36415; 36600; 71045; 80048; 80053; 80305; 81001; 81025; 82803; 82948; 83036; 83605; 83735; 84100; 84145; 85018; 85025; 87040; 87070; 87077; 87186; 93005; J1815; J1885; J2270; J7030; J7060

== ENCOUNTER 2017-06-04 12:30 | Inpatient (IN) | payer MEDICAID ==
[~2017-06-04] VITALS: Ht 154.9 cm; Wt 49.0 kg
[2017-06-04] MEDS: K, MAG and/or Phos replacement - Verify level? MC SCH (08:00)
[~2017-06-04 12:30] MED LIST changes: -AZI25OT PO; +BASAGLAR; +CEFDINIR 300 MG; +CLINDAMYCIN HCL 300 MG; -ZOF4I PO; +[UNRECOGNIZED DRUG - OTHER]; +[UNRECOGNIZED DRUG - REMARK]
[2017-06-04 13:21] LABS: BASOPHILS % (AUTO) 0.2 % (0-1); EOSINOPHILS # (AUTO) 0.2 X10'3 (0-0.9); HEMATOCRIT 47.4 % (35.0-45.0); HEMOGLOBIN 15.7 g/dl (12.0-16.0); LYMPHOCYTES # (AUTO) 1.3 X10'3 (1.1-4.8); LYMPHOCYTES % (AUTO) 8.7 % (21-51); MEAN CORPUSCULAR HEMOGLOBIN 30.8 PG (27.0-31.0); MEAN CORPUSCULAR HGB CONC 33.1 % (33.0-36.5); MONOCYTES # (AUTO) 0.8 X10'3 (0-0.9); MONOCYTES % (AUTO) 5.6 % (2-12); NEUTROPHILS # (AUTO) 12.5 X10'3 (1.8-7.7); NEUTROPHILS % (AUTO) 84.5 % (42-75); PLATELET COUNT 391 X10'3 (140-440); RED CELL DISTRIBUTION WIDTH 16.9 % (11.5-14.5); WHITE BLOOD COUNT 14.8 X10'3 (4.5-11.0)
[2017-06-04 13:31] LABS: PROTHROMBIN TIME 9.9 SECONDS (9.0-12.0)
[2017-06-04 13:37] LABS: ALANINE AMINOTRANSFERASE 28 U/L (12-78); ALBUMIN 4.1 G/DL (3.4-5.0); ALKALINE PHOSPHATASE 117 IU/L (46-116); ANION GAP 28 (8-16); ASPARTATE AMINO TRANSFERASE 16 U/L (10-37); BILIRUBIN,TOTAL 0.3 MG/DL (0.1-1.0); BLOOD UREA NITROGEN 12 MG/DL (7-18); BUN/CREATININE RATIO 10.9 (6.6-38.0); CHLORIDE 97 MMOL/L (99-107); GLUCOSE 431 MG/DL (70-104); POTASSIUM 4.7 MMOL/L (3.5-5.1); SODIUM 131 MMOL/L (135-145); TOTAL PROTEIN 8.2 G/DL (6.4-8.2); eGFR 58 ML/MIN
[2017-06-04 13:43] LABS: TOTAL CARBON DIOXIDE 5.9 MMOL/L (24-32)
[2017-06-04] MEDS ORDERED: normal saline 1000ML IV soln IV ONE (13:55)
[2017-06-04] MEDS ORDERED: insulin regular, human 100 UNIT in normal saline 100ml IV soln 100 ML IV PRN ×2 (13:55)
[2017-06-04] MEDS ORDERED: morphine 4 MG/ML inj SYRINge IV ONE ×3 (14:00→21:35)
[2017-06-04 14:36] LABS: ABG BASE EXCESS -27.2 mmol/L (-2.0-3.0); ABG HCO3 2.6 mmol/L (22.0-26.0); ABG OXYGEN SATURATION 97.4 % (95-98); ABG PCO2 (T) 11.5 mmHg (32.0-45.0); ABG PH (T) 6.979 (7.350-7.450); ABG PO2 (T) 110.6 mmHg (83-108); ALLEN'S TEST Positive; FCOHb 0.1 % (0.5-1.5); FMetHb 0.3 % (0.3-1.12); RESPIRATORY RATE (OBSERVED) 35 b/min
[2017-06-04 14:37] LABS: MAGNESIUM 2.1 MG/DL (1.5-2.4)
[2017-06-04] MEDS ORDERED: normal saline 1000ML IV soln IVB ONE (16:10)
[2017-06-04] MEDS ORDERED: acetaminophen 325mg tablet PO PRN ×2 (16:35)
[2017-06-04] MEDS ORDERED: ondansetron/PF 4mg/2ml inj IV PRN (16:35)
[2017-06-04] MEDS ORDERED: Neutra Phos packet PO PRN (16:35)
[2017-06-04] MEDS ORDERED: sodium phosphate inj. 30 MMOL in dextrose 5%-water 250 ML IV PRN ×2 (16:35→23:35)
[2017-06-04] MEDS ORDERED: magnesium 4gm in 100ml NS 100 ML IV PRN (16:35)
[2017-06-04] MEDS ORDERED: magnesium hydroxide 30ml (MOM) UD suspension PO PRN (16:35)
[2017-06-04] MEDS ORDERED: magnesium 2GM in 50ml NS 50 ML IV PRN (16:35)
[2017-06-04] MEDS ORDERED: sodium phosphate inj. 15 MMOL in dextrose 5%-water 150 ML IV PRN ×2 (16:35→23:35)
[2017-06-04] MEDS ORDERED: bisacodyl 10mg suppository rectal RC PRN (16:35)
[2017-06-04] MEDS ORDERED: magnesium Cl slow-release 64mg tablet PO PRN (16:35)
[2017-06-04] MEDS ORDERED: sodium bicarbonate (8.4%) inj. 100 MEQ in sodium chloride 0.45% 500ml 500 ML IV PRN (16:39)
[2017-06-04] MEDS ORDERED: sodium bicarbonate (8.4%) inj. 50 MEQ in sodium chloride 0.45% 500ml 250 ML IV PRN (16:39)
[2017-06-04] MEDS: normal saline 1000ml 1,000 ML IV SCH ×4 (16:39→20:39)
[2017-06-04] MEDS ORDERED: insulin regular, human 10 units/0.1 ml syringe SQ PRN (16:40)
[2017-06-04] MEDS ORDERED: potassium Cl 20 mEq SR tablet PO PRN ×2 (16:40)
[2017-06-04] MEDS ORDERED: potassium Cl 40MEQ/NS 500ml 500 ML IV PRN ×4 (16:40→23:35)
[2017-06-04] MEDS: pantoprazole 40 MG vial IV SCH (16:58)
[2017-06-04] MEDS: potassium CL 20mEq in D5-1/2NS 1,000 ML IV PRN ×4 (17:43→22:58)
[2017-06-04] MEDS: insulin regular, DKA only 100 UNIT in normal saline 100ml IV soln 99 ML IV SCH ×4 (18:38→23:17)
[2017-06-04] MEDS ORDERED: INSU100I31 SQ (19:13)
[2017-06-04 19:30] VITALS: BP 133/71
[2017-06-04 20:00] VITALS: BP 95/59
[2017-06-04 20:21] LABS: ABG BASE EXCESS -19.5 mmol/L (-2.0-3.0); ABG HCO3 7.5 mmol/L (22.0-26.0); ABG OXYGEN SATURATION 98.2 % (95-98); ABG PCO2 (T) 21.6 mmHg (32.0-45.0); ABG PH (T) 7.157 (7.350-7.450); ABG PO2 (T) 108.3 mmHg (83-108); ALLEN'S TEST Positive; FCOHb 0.1 % (0.5-1.5); FMetHb 0.3 % (0.3-1.12); FO2Hb 97.8 % (94-100); PATIENT TEMPERATURE 36.8; RESPIRATORY RATE (OBSERVED) 20 b/min; TOTAL HEMOGLOBIN 12.2 G/dl (12.0-16.0)
[2017-06-04 20:49] LABS: ALBUMIN 2.9 G/DL (3.4-5.0); ANION GAP 18 (8-16); BLOOD UREA NITROGEN 8 MG/DL (7-18); BUN/CREATININE RATIO 9.8 (6.6-38.0); CHLORIDE 113 MMOL/L (99-107); CREATININE 0.82 MG/DL (0.40-0.90); GLUCOSE 111 MG/DL (70-104); PHOSPHORUS 1.3 MG/DL (2.3-4.5); POTASSIUM 3.7 MMOL/L (3.5-5.1); SODIUM 141 MMOL/L (135-145); eGFR 81 ML/MIN
[2017-06-04 20:54] LABS: TOTAL CARBON DIOXIDE 10.3 MMOL/L (24-32)
[2017-06-04 21:00] VITALS: BP 84/42
[2017-06-04] MEDS ORDERED: morphine 4 MG/ML inj SYRINge IV PRN (21:35)
[2017-06-04 22:00] VITALS: BP 95/52
[2017-06-04 22:47] LABS: MAGNESIUM 1.5 MG/DL (1.5-2.4)
[2017-06-04] MEDS: heparin, porcine 5000 units/ml vial SQ SCH (23:18)
[2017-06-05] VITALS (23 sets, daily range): BP systolic 80–112; BP diastolic 43–70
[2017-06-05 00:13] LABS: ALBUMIN 2.3 G/DL (3.4-5.0); ANION GAP 10 (8-16); BLOOD UREA NITROGEN 7 MG/DL (7-18); BUN/CREATININE RATIO 10.3 (6.6-38.0); CHLORIDE 115 MMOL/L (99-107); CREATININE 0.68 MG/DL (0.40-0.90); GLUCOSE 105 MG/DL (70-104); PHOSPHORUS 1.7 MG/DL (2.3-4.5); POTASSIUM 3.3 MMOL/L (3.5-5.1); SODIUM 140 MMOL/L (135-145); TOTAL CARBON DIOXIDE 15.1 MMOL/L (24-32); eGFR > 90 ML/MIN
[2017-06-05 00:17] LABS: CALCIUM 5.7 MG/DL (8.5-10.1)
[2017-06-05 00:20] LABS: HCG SERUM QL NEGATIVE
[2017-06-05] MEDS: normal saline 1000ml 1,000 ML IV SCH ×3 (00:39→08:39)
[2017-06-05] MEDS: potassium Cl 20 mEq SR tablet PO PRN ×4 (02:07→15:10)
[2017-06-05] MEDS: Dextrose 10%-water IV solution 1,000 ML IV SCH ×2 (02:08→08:06)
[2017-06-05 05:16] LABS: BASOPHILS % (AUTO) 0.2 % (0-1); EOSINOPHILS # (AUTO) 0.1 X10'3 (0-0.9); EOSINOPHILS % (AUTO) 1.1 % (0-6); HEMATOCRIT 33.5 % (35.0-45.0); HEMOGLOBIN 11.4 g/dl (12.0-16.0); LYMPHOCYTES # (AUTO) 1.9 X10'3 (1.1-4.8); LYMPHOCYTES % (AUTO) 23.6 % (21-51); MEAN CORPUSCULAR HEMOGLOBIN 30.9 PG (27.0-31.0); MEAN CORPUSCULAR HGB CONC 33.9 % (33.0-36.5); MEAN CORPUSCULAR VOLUME 91.3 FL (78-98); MEAN PLATELET VOLUME 7.3 FL (7.4-10.4); MONOCYTES # (AUTO) 0.7 X10'3 (0-0.9); NEUTROPHILS # (AUTO) 5.2 X10'3 (1.8-7.7); NEUTROPHILS % (AUTO) 66.1 % (42-75); PLATELET COUNT 276 X10'3 (140-440); RED BLOOD COUNT 3.67 X10'6 (4.20-5.60); RED CELL DISTRIBUTION WIDTH 16.9 % (11.5-14.5); WHITE BLOOD COUNT 7.9 X10'3 (4.5-11.0)
[2017-06-05 05:35] LABS: ALANINE AMINOTRANSFERASE 14 U/L (12-78); ALBUMIN 2.3 G/DL (3.4-5.0); ALBUMIN/GLOBULIN RATIO 0.9 (1.1-1.5); ALKALINE PHOSPHATASE 56 IU/L (46-116); ANION GAP 13 (8-16); ASPARTATE AMINO TRANSFERASE 12 U/L (10-37); BILIRUBIN,TOTAL 0.2 MG/DL (0.1-1.0); BLOOD UREA NITROGEN 5 MG/DL (7-18); BUN/CREATININE RATIO 8.2 (6.6-38.0); CHLORIDE 111 MMOL/L (99-107); CREATININE 0.61 MG/DL (0.40-0.90); GLUCOSE 155 MG/DL (70-104); MAGNESIUM 1.3 MG/DL (1.5-2.4); PHOSPHORUS 3.4 MG/DL (2.3-4.5); SODIUM 139 MMOL/L (135-145); TOTAL CARBON DIOXIDE 15.1 MMOL/L (24-32); TOTAL PROTEIN 4.8 G/DL (6.4-8.2); eGFR > 90 ML/MIN
[2017-06-05 05:37] LABS: POTASSIUM 2.8 MMOL/L (3.5-5.1)
[2017-06-05 05:38] LABS: CALCIUM 5.8 MG/DL (8.5-10.1)
[2017-06-05] MEDS ORDERED: K and/or MAG REPLACEMENT MC SCH (08:00)
[2017-06-05] MEDS: heparin, porcine 5000 units/ml vial SQ SCH ×2 (08:00→16:00)
[2017-06-05] MEDS: K, MAG and/or Phos replacement - Verify level? MC SCH (08:00)
[2017-06-05] MEDS: pantoprazole 40 MG vial IV SCH (08:06)
[2017-06-05 08:58] LABS: ALBUMIN 2.3 G/DL (3.4-5.0); ANION GAP 13 (8-16); BLOOD UREA NITROGEN 4 MG/DL (7-18); CALCIUM 6.2 MG/DL (8.5-10.1); CHLORIDE 110 MMOL/L (99-107); GLUCOSE 114 MG/DL (70-104); PHOSPHORUS 2.4 MG/DL (2.3-4.5); SODIUM 139 MMOL/L (135-145); TOTAL CARBON DIOXIDE 15.7 MMOL/L (24-32); eGFR > 90 ML/MIN
[2017-06-05 08:59] LABS: POTASSIUM 2.7 MMOL/L (3.5-5.1)
[2017-06-05 09:59] LABS: MAGNESIUM 2.7 MG/DL (1.5-2.4)
[2017-06-05] MEDS ORDERED: glucagon, human recombinant 1mg kit SUBCUT PRN (11:00)
[2017-06-05] MEDS ORDERED: dextrose 50%-water 50ml dispensing syringe IV PRN ×2 (11:00)
[2017-06-05] MEDS ORDERED: dextrose ORAL solution 15 GM/59 ML bottle PO PRN ×2 (11:00)
[2017-06-05] MEDS ORDERED: insulin glargine (Lantus) pen - multi-dose SQ ONE ×3 (11:00→21:35)
[2017-06-05] MEDS: insulin Lispro (HumaLOG) vial - multi-dose SQ SCH ×4 (11:47→19:49)
[2017-06-05] MEDS: naproxen 500mg tablet PO SCH (19:49)
[2017-06-05] MEDS ORDERED: insulin glargine (Lantus) pen - multi-dose SQ SCH ×2 (21:00)
[2017-06-05] MEDS: morphine 4 MG/ML inj SYRINge IV PRN (22:19)
[2017-06-06] VITALS: BP 103/68
[2017-06-06] MEDS: LORazepam 0.5 MG tablet PO PRN ×2 (00:35→13:14)
[2017-06-06 05:41] LABS: BASOPHILS % (AUTO) 0.2 % (0-1); EOSINOPHILS # (AUTO) 0.1 X10'3 (0-0.9); EOSINOPHILS % (AUTO) 1.1 % (0-6); HEMATOCRIT 33.6 % (35.0-45.0); HEMOGLOBIN 11.6 g/dl (12.0-16.0); LYMPHOCYTES # (AUTO) 2.4 X10'3 (1.1-4.8); LYMPHOCYTES % (AUTO) 49.4 % (21-51); MEAN CORPUSCULAR HEMOGLOBIN 30.7 PG (27.0-31.0); MEAN CORPUSCULAR HGB CONC 34.6 % (33.0-36.5); MEAN CORPUSCULAR VOLUME 88.7 FL (78-98); MEAN PLATELET VOLUME 7.7 FL (7.4-10.4); MONOCYTES # (AUTO) 0.5 X10'3 (0-0.9); MONOCYTES % (AUTO) 10.7 % (2-12); NEUTROPHILS # (AUTO) 1.8 X10'3 (1.8-7.7); NEUTROPHILS % (AUTO) 38.6 % (42-75); PLATELET COUNT 257 X10'3 (140-440); RED BLOOD COUNT 3.78 X10'6 (4.20-5.60); RED CELL DISTRIBUTION WIDTH 16.4 % (11.5-14.5); WHITE BLOOD COUNT 4.8 X10'3 (4.5-11.0)
[2017-06-06 05:59] LABS: ALANINE AMINOTRANSFERASE 20 U/L (12-78); ALBUMIN 2.3 G/DL (3.4-5.0); ALBUMIN/GLOBULIN RATIO 0.9 (1.1-1.5); ALKALINE PHOSPHATASE 51 IU/L (46-116); ANION GAP 9 (8-16); ASPARTATE AMINO TRANSFERASE 14 U/L (10-37); BILIRUBIN,TOTAL 0.2 MG/DL (0.1-1.0); BLOOD UREA NITROGEN 9 MG/DL (7-18); CALCIUM 7.5 MG/DL (8.5-10.1); CHLORIDE 113 MMOL/L (99-107); CREATININE 0.69 MG/DL (0.40-0.90); GLUCOSE 179 MG/DL (70-104); PHOSPHORUS 2.6 MG/DL (2.3-4.5); POTASSIUM 3.2 MMOL/L (3.5-5.1); SODIUM 144 MMOL/L (135-145); TOTAL CARBON DIOXIDE 22.2 MMOL/L (24-32); TOTAL PROTEIN 4.9 G/DL (6.4-8.2); eGFR > 90 ML/MIN
[2017-06-06 07:06] VITALS: BP 95/61
[2017-06-06] MEDS ORDERED: pantoprazole 40mg Tablet.DR PO SCH (07:30)
[2017-06-06] MEDS: K, MAG and/or Phos replacement - Verify level? MC SCH (07:55)
[2017-06-06] MEDS: heparin, porcine 5000 units/ml vial SQ SCH ×3 (07:56→15:17)
[2017-06-06] MEDS: potassium Cl 20 mEq SR tablet PO PRN ×3 (08:07→15:48)
[2017-06-06] MEDS: naproxen 500mg tablet PO SCH (08:07)
[2017-06-06] MEDS: insulin Lispro (HumaLOG) vial - multi-dose SQ SCH ×2 (08:54→13:42)
[2017-06-06 11:43] VITALS: BP 103/60
[2017-06-06] MEDS: morphine 4 MG/ML inj SYRINge IV PRN (12:14)
[2017-06-06] MEDS ORDERED: insulin glargine (Lantus) pen - multi-dose SQ SCH (21:00)
== END 2017-06-06 16:49 | disposition home or self-care (01) | DRG 420 ==
LOC: ER 12:30 → ED HOLD 16:32 → ICU 2S 19:52 → SUR 3N 06-06 00:06
PROVIDERS: ATTEND Internal Medicine Critical Care Medicine
DX: E10.10 Type 1 diabetes mellitus with ketoacidosis without coma (principal); R65.10 Systemic inflammatory response syndrome (SIRS) of non-infectious origin without acute organ dysfunction; E10.42 Type 1 diabetes mellitus with diabetic polyneuropathy; F41.9 Anxiety disorder, unspecified; G89.29 Other chronic pain; F12.90 Cannabis use, unspecified, uncomplicated; Z98.891 History of uterine scar from previous surgery; Z98.51 Tubal ligation status; Z79.899 Other long term (current) drug therapy; Z88.6 Allergy status to analgesic agent; Z83.3 Family history of diabetes mellitus; Z81.1 Family history of alcohol abuse and dependence
CPT/HCPCS: 36415; 36600; 71045; 74176; 80048; 80053; 82009; 82330; 82803; 82948; 83036; 83605; 83735; 84100; 84145; 84703; 85018; 85025; 85610; 87040; 87070; 93005; 96365; 96375; 99291; A6213; C9113; J1644; J1815; J2270; J3475; J7030

== ENCOUNTER 2017-06-22 01:45 | Inpatient (IN) | payer MEDICAID ==
[~2017-06-22] VITALS: Ht 154.9 cm; Wt 55.8 kg
[~2017-06-22 01:45] MED LIST changes: -BASAGLAR; -CEFDINIR 300 MG; -CLINDAMYCIN HCL 300 MG; +INSU100I31 SQ; +NAPR-996 PO; -NAPR500T4 PO; -[UNRECOGNIZED DRUG - OTHER]; -[UNRECOGNIZED DRUG - REMARK]
[2017-06-22] MEDS ORDERED: normal saline 1000ML IV soln IVB ONE (01:55)
[2017-06-22 02:21] LABS: ABG PH (T) 6.871 (7.350-7.450); ABG PO2 (T) 139.3 mmHg (83-108); ALLEN'S TEST Positive; FCOHb 0.6 % (0.5-1.5); FMetHb 0.4 % (0.3-1.12); PATIENT TEMPERATURE 36.6; RESPIRATORY RATE (OBSERVED) 40 b/min; TOTAL HEMOGLOBIN 14.1 G/dl (12.0-16.0)
[2017-06-22 03:00] LABS: BASOPHILS # (AUTO) 0.1 X10'3 (0-0.2); BASOPHILS % (AUTO) 0.2 % (0-1); EOSINOPHILS % (AUTO) 0.1 % (0-6); HEMATOCRIT 43.1 % (35.0-45.0); HEMOGLOBIN 14.2 g/dl (12.0-16.0); LYMPHOCYTES # (AUTO) 1.4 X10'3 (1.1-4.8); LYMPHOCYTES % (AUTO) 5.6 % (21-51); MEAN CORPUSCULAR HEMOGLOBIN 31.2 PG (27.0-31.0); MEAN CORPUSCULAR HGB CONC 32.9 % (33.0-36.5); MONOCYTES % (AUTO) 4.1 % (2-12); NEUTROPHILS # (AUTO) 22.6 X10'3 (1.8-7.7); PLATELET COUNT 255 X10'3 (140-440); RED BLOOD COUNT 4.54 X10'6 (4.20-5.60); RED CELL DISTRIBUTION WIDTH 17.3 % (11.5-14.5)
[2017-06-22 03:01] LABS: WHITE BLOOD COUNT 25.1 X10'3 (4.5-11.0)
[2017-06-22 03:58] LABS: ANISOCYTOSIS 1+; PLATELET ESTIMATE NORMAL; TOTAL CELLS COUNTED 100; TOXIC GRANULATION 1+
[2017-06-22 04:28] LABS: ALANINE AMINOTRANSFERASE 27 U/L (12-78); ALKALINE PHOSPHATASE 104 IU/L (46-116); ASPARTATE AMINO TRANSFERASE 30 U/L (10-37); BILIRUBIN,TOTAL 0.3 MG/DL (0.1-1.0); BLOOD UREA NITROGEN 19 MG/DL (7-18); BUN/CREATININE RATIO 14.3 (6.6-38.0); CALCIUM 6.4 MG/DL (8.5-10.1); CHLORIDE 101 MMOL/L (99-107); CREATININE 1.33 MG/DL (0.40-0.90); MAGNESIUM 1.7 MG/DL (1.5-2.4); PHOSPHORUS 5.1 MG/DL (2.3-4.5); POTASSIUM 4.4 MMOL/L (3.5-5.1); SODIUM 138 MMOL/L (135-145); eGFR 46 ML/MIN
[2017-06-22 04:31] LABS: CLARITY,URINE SLIGHTLY CLOUDY (Clear); COLOR,URINE YELLOW (Yellow); GLUCOSE, URINE >=1000 mg/dl (Neg); KETONES,URINE >=80 mg/dl (Neg); LEUKOCYTE ESTERASE ,URINE NEGATIVE (Neg); NITRITES, URINE NEGATIVE (Neg); OCCULT BLOOD,URINE TRACE-INTACT (Neg); PH,URINE 5.5 (4.8-8.0); PROTEIN,URINE TRACE mg/dl (Neg); UROBILINOGEN,URINE 0.2 E.U/dL (0.2-1.0)
[2017-06-22 04:38] LABS: BACTERIA,URINE FEW /HPF (Neg); RBC,URINE NONE SEEN /HPF (0-2); UA COLLECTION TYPE STRAIGHT CATH; WBC,URINE NONE SEEN /HPF (0-4)
[2017-06-22 04:39] LABS: AMORPHOUS URATES 2+; SQUAMOUS EPITHELIAL CELL,UR FEW /LPF (FEW)
[2017-06-22 04:46] LABS: GLUCOSE 500 MG/DL (70-104)
[2017-06-22 04:47] LABS: ANION GAP 32 (8-16); TOTAL CARBON DIOXIDE < 5 MMOL/L (24-32)
[2017-06-22] MEDS ORDERED: potassium CL 20mEq in D5-1/2NS 1,000 ML IV PRN (04:52)
[2017-06-22] MEDS ORDERED: sodium phosphate inj. 15 MMOL in dextrose 5%-water 150 ML IV PRN ×2 (04:55→09:00)
[2017-06-22] MEDS ORDERED: Neutra Phos packet PO PRN ×2 (04:55→09:00)
[2017-06-22] MEDS ORDERED: potassium Cl 40MEQ/NS 500ml 500 ML IV PRN ×3 (04:55→09:00)
[2017-06-22] MEDS ORDERED: potassium Cl 20 mEq SR tablet PO PRN (04:55)
[2017-06-22] MEDS ORDERED: sodium phosphate inj. 30 MMOL in dextrose 5%-water 250 ML IV PRN ×2 (04:55→09:00)
[2017-06-22] MEDS ORDERED: HYDR-565 PO (04:59)
[2017-06-22 05:03] LABS: URINE HCG NEGATIVE (NEG)
[2017-06-22] MEDS ORDERED: insulin R INFUSION 1 ML IV ONE (05:07)
[2017-06-22] MEDS: insulin regular, DKA only 100 UNIT in normal saline 100ml IV soln 99 ML IV SCH ×6 (05:11→19:12)
[2017-06-22] MEDS: normal saline 1000ml 1,000 ML IV SCH ×9 (05:12→20:58)
[2017-06-22 05:15] LABS: INR 1.1 INR; PARTIAL THROMBOPLASTIN TIME 34 SECONDS (22-32); PROTHROMBIN TIME 11.4 SECONDS (9.0-12.0)
[2017-06-22 05:38] LABS: URINE AMPHETAMINE SCREEN NEGATIVE (Neg); URINE BARBITUATE SCREEN NEGATIVE (Neg); URINE BENZODIAZEPINES SCREEN NEGATIVE (Neg); URINE CANNABINOID SCREEN NEGATIVE (Neg); URINE COCAINE SCREEN NEGATIVE (Neg); URINE METHADONE SCREEN NEGATIVE (Neg); URINE OPIATE SCREEN POSITIVE (Neg); URINE PHENCYCLIDINE SCREEN NEGATIVE (Neg)
[2017-06-22] MEDS ORDERED: K and/or MAG REPLACEMENT MC SCH (08:00)
[2017-06-22] MEDS ORDERED: insulin regular, DKA only 100 UNIT in normal saline 100ml IV soln 99 ML IV SCH ×2 (08:58)
[2017-06-22 09:38] LABS: HEMATOCRIT 42.4 % (35.0-45.0); HEMOGLOBIN 14.1 g/dl (12.0-16.0); MEAN CORPUSCULAR HEMOGLOBIN 31.4 PG (27.0-31.0); MEAN CORPUSCULAR HGB CONC 33.2 % (33.0-36.5); MEAN CORPUSCULAR VOLUME 94.7 FL (78-98); MEAN PLATELET VOLUME 8.2 FL (7.4-10.4); PLATELET COUNT 325 X10'3 (140-440); RED BLOOD COUNT 4.48 X10'6 (4.20-5.60); RED CELL DISTRIBUTION WIDTH 17.1 % (11.5-14.5)
[2017-06-22] MEDS: potassium CL 20mEq in D5-1/2NS 1,000 ML IV PRN ×3 (09:38→16:27)
[2017-06-22 09:43] LABS: WHITE BLOOD COUNT 26.7 X10'3 (4.5-11.0)
[2017-06-22 09:56] LABS: ANISOCYTOSIS 1+; PLATELET ESTIMATE NORMAL; TOTAL CELLS COUNTED 100
[2017-06-22] MEDS ORDERED: insulin glargine (Lantus) pen - multi-dose SQ ONE (10:15)
[2017-06-22 10:16] LABS: ABG BASE EXCESS -26.1 mmol/L (-2.0-3.0); ABG HCO3 2.7 mmol/L (22.0-26.0); ABG OXYGEN SATURATION 98.2 % (95-98); ABG PCO2 (T) 10.5 mmHg (32.0-45.0); ABG PH (T) 7.028 (7.350-7.450); ABG PO2 (T) 119.3 mmHg (83-108); ALLEN'S TEST Positive; FCOHb 0.2 % (0.5-1.5); FLOW 2 L/min; FMetHb 0.3 % (0.3-1.12); FO2Hb 97.7 % (94-100); RESPIRATORY RATE (OBSERVED) 30 b/min; TOTAL HEMOGLOBIN 12.6 G/dl (12.0-16.0)
[2017-06-22 10:20] LABS: ALBUMIN 3.2 G/DL (3.4-5.0); ANION GAP 27 (8-16); BLOOD UREA NITROGEN 18 MG/DL (7-18); BUN/CREATININE RATIO 16.8 (6.6-38.0); CALCIUM 6.1 MG/DL (8.5-10.1); CHLORIDE 111 MMOL/L (99-107); CREATININE 1.07 MG/DL (0.40-0.90); GLUCOSE 287 MG/DL (70-104); PHOSPHORUS 3.1 MG/DL (2.3-4.5); POTASSIUM 3.3 MMOL/L (3.5-5.1); SODIUM 143 MMOL/L (135-145); eGFR 59 ML/MIN
[2017-06-22] MEDS ORDERED: ondansetron/PF 4mg/2ml inj IV PRN (10:20)
[2017-06-22 10:24] LABS: TOTAL CARBON DIOXIDE < 5 MMOL/L (24-32)
[2017-06-22] MEDS: pantoprazole 40 MG vial IV SCH (11:01)
[2017-06-22 12:03] LABS: ANION GAP 25 (8-16); BLOOD UREA NITROGEN 17 MG/DL (7-18); BUN/CREATININE RATIO 16.8 (6.6-38.0); CALCIUM 6.4 MG/DL (8.5-10.1); CHLORIDE 114 MMOL/L (99-107); CREATININE 1.01 MG/DL (0.40-0.90); GLUCOSE 203 MG/DL (70-104); PHOSPHORUS 1.7 MG/DL (2.3-4.5); SODIUM 145 MMOL/L (135-145); eGFR 64 ML/MIN
[2017-06-22 12:04] LABS: POTASSIUM 3.4 MMOL/L (3.5-5.1)
[2017-06-22 12:07] LABS: TOTAL CARBON DIOXIDE 6.1 MMOL/L (24-32)
[2017-06-22 13:37] LABS: ALBUMIN 2.8 G/DL (3.4-5.0); ANION GAP 21 (8-16); BLOOD UREA NITROGEN 17 MG/DL (7-18); BUN/CREATININE RATIO 17.5 (6.6-38.0); CALCIUM 6.1 MG/DL (8.5-10.1); CHLORIDE 114 MMOL/L (99-107); CREATININE 0.97 MG/DL (0.40-0.90); GLUCOSE 177 MG/DL (70-104); PHOSPHORUS 1.3 MG/DL (2.3-4.5); POTASSIUM 3.2 MMOL/L (3.5-5.1); SODIUM 145 MMOL/L (135-145); eGFR 67 ML/MIN
[2017-06-22 13:51] LABS: TOTAL CARBON DIOXIDE 10.5 MMOL/L (24-32)
[2017-06-22] MEDS: metoclopramide 5 mg/ml inj IV ONE (15:10)
[2017-06-22] MEDS ORDERED: dextrose 50%-water 50ml dispensing syringe IV ONE (18:05)
[2017-06-22] MEDS ORDERED: DEXTROSE 10 % AND 0.45 % NACL 1,000 ML IV SCH (18:15)
[2017-06-22 19:23] LABS: ALBUMIN 2.7 G/DL (3.4-5.0); ANION GAP 20 (8-16); BLOOD UREA NITROGEN 15 MG/DL (7-18); BUN/CREATININE RATIO 15.8 (6.6-38.0); CALCIUM 6.3 MG/DL (8.5-10.1); CHLORIDE 109 MMOL/L (99-107); CREATININE 0.95 MG/DL (0.40-0.90); GLUCOSE 326 MG/DL (70-104); MAGNESIUM 1.4 MG/DL (1.5-2.4); PHOSPHORUS 1.8 MG/DL (2.3-4.5); SODIUM 141 MMOL/L (135-145); eGFR 68 ML/MIN
[2017-06-22] MEDS: sodium chloride inj. 77 MEQ in Dextrose 10%-water IV solution 980.75 ML IV SCH (19:33)
[2017-06-22 19:34] LABS: POTASSIUM 2.9 MMOL/L (3.5-5.1); TOTAL CARBON DIOXIDE 12.1 MMOL/L (24-32)
[2017-06-22] MEDS: heparin, porcine 5000 units/ml vial SQ SCH (20:00)
[2017-06-22] MEDS: potassium Cl 40MEQ/NS 500ml 500 ML IV PRN (20:12)
[2017-06-22 21:10] VITALS: BP 109/60
[2017-06-22 22:00] VITALS: BP 97/63
[2017-06-22] MEDS ORDERED: dextrose 5%-normal saline 1,000 ML IV SCH (22:05)
[2017-06-22 23:28] LABS: ALBUMIN 2.7 G/DL (3.4-5.0); ANION GAP 13 (8-16); BLOOD UREA NITROGEN 14 MG/DL (7-18); BUN/CREATININE RATIO 15.6 (6.6-38.0); CALCIUM 6.4 MG/DL (8.5-10.1); CHLORIDE 112 MMOL/L (99-107); GLUCOSE 198 MG/DL (70-104); SODIUM 142 MMOL/L (135-145); TOTAL CARBON DIOXIDE 17.2 MMOL/L (24-32); eGFR 73 ML/MIN
[2017-06-22 23:32] LABS: POTASSIUM 2.8 MMOL/L (3.5-5.1)
[2017-06-23] MEDS: normal saline 1000ml 1,000 ML IV SCH ×7 (00:52→12:58)
[2017-06-23 02:00] VITALS: BP 92/56
[2017-06-23] MEDS: potassium Cl 40MEQ/NS 500ml 500 ML IV PRN (02:02)
[2017-06-23] MEDS: sodium chloride inj. 77 MEQ in Dextrose 10%-water IV solution 980.75 ML IV SCH ×2 (02:10→05:08)
[2017-06-23 06:30] VITALS: BP 105/58
[2017-06-23 07:09] LABS: ALBUMIN 2.2 G/DL (3.4-5.0); ANION GAP 16 (8-16); BLOOD UREA NITROGEN 12 MG/DL (7-18); BUN/CREATININE RATIO 15.4 (6.6-38.0); CALCIUM 6.2 MG/DL (8.5-10.1); CHLORIDE 114 MMOL/L (99-107); CREATININE 0.78 MG/DL (0.40-0.90); GLUCOSE 118 MG/DL (70-104); POTASSIUM 3.3 MMOL/L (3.5-5.1); SODIUM 143 MMOL/L (135-145); eGFR 86 ML/MIN
[2017-06-23 07:33] LABS: PHOSPHORUS 0.8 MG/DL (2.3-4.5); TOTAL CARBON DIOXIDE 13.2 MMOL/L (24-32)
[2017-06-23] MEDS: heparin, porcine 5000 units/ml vial SQ SCH ×2 (08:00→19:24)
[2017-06-23] MEDS: pantoprazole 40 MG vial IV SCH (08:00)
[2017-06-23] MEDS: K and/or MAG REPLACEMENT MC SCH (08:00)
[2017-06-23] MEDS: insulin regular, DKA only 100 UNIT in normal saline 100ml IV soln 99 ML IV SCH ×2 (08:02)
[2017-06-23] MEDS: morphine 4 MG/ML inj SYRINge IV PRN ×3 (08:39→20:58)
[2017-06-23] MEDS: Potassium Cl inj 20 MEQ in DEXTROSE 10 % AND 0.45 % NACL 1,000 ML IV PRN ×2 (08:59→14:35)
[2017-06-23 11:55] VITALS: BP 94/62
[2017-06-23 12:08] LABS: ALANINE AMINOTRANSFERASE 20 U/L (12-78); ALBUMIN 2.1 G/DL (3.4-5.0); ALBUMIN/GLOBULIN RATIO 0.8 (1.1-1.5); ALKALINE PHOSPHATASE 62 IU/L (46-116); ANION GAP 9 (8-16); ASPARTATE AMINO TRANSFERASE 20 U/L (10-37); BILIRUBIN,TOTAL 0.2 MG/DL (0.1-1.0); BLOOD UREA NITROGEN 10 MG/DL (7-18); BUN/CREATININE RATIO 14.9 (6.6-38.0); CALCIUM 6.5 MG/DL (8.5-10.1); CHLORIDE 113 MMOL/L (99-107); CREATININE 0.67 MG/DL (0.40-0.90); GLUCOSE 232 MG/DL (70-104); SODIUM 141 MMOL/L (135-145); TOTAL CARBON DIOXIDE 18.7 MMOL/L (24-32); TOTAL PROTEIN 4.6 G/DL (6.4-8.2); eGFR > 90 ML/MIN
[2017-06-23 12:10] LABS: POTASSIUM 2.8 MMOL/L (3.5-5.1)
[2017-06-23] MEDS: potassium Cl 20 mEq SR tablet PO PRN (12:34)
[2017-06-23] MEDS ORDERED: SODIUM CHLORIDE IV PRN (13:00)
[2017-06-23] MEDS ORDERED: [UNRECOGNIZED DRUG - OTHER] IV PRN (13:00)
[2017-06-23] MEDS ORDERED: POTASSIUM CL IV PRN (13:00)
[2017-06-23 15:00] VITALS: BP 91/59
[2017-06-23 15:25] LABS: ALANINE AMINOTRANSFERASE 22 U/L (12-78); ALBUMIN 2.2 G/DL (3.4-5.0); ALBUMIN/GLOBULIN RATIO 0.8 (1.1-1.5); ALKALINE PHOSPHATASE 67 IU/L (46-116); ANION GAP 8 (8-16); ASPARTATE AMINO TRANSFERASE 25 U/L (10-37); BILIRUBIN,TOTAL 0.2 MG/DL (0.1-1.0); BLOOD UREA NITROGEN 10 MG/DL (7-18); BUN/CREATININE RATIO 11.4 (6.6-38.0); CALCIUM 7.2 MG/DL (8.5-10.1); CHLORIDE 113 MMOL/L (99-107); CREATININE 0.88 MG/DL (0.40-0.90); GLUCOSE 279 MG/DL (70-104); PHOSPHORUS 1.8 MG/DL (2.3-4.5); POTASSIUM 3.6 MMOL/L (3.5-5.1); SODIUM 140 MMOL/L (135-145); TOTAL CARBON DIOXIDE 18.6 MMOL/L (24-32); TOTAL PROTEIN 4.8 G/DL (6.4-8.2); eGFR 74 ML/MIN
[2017-06-23 15:41] LABS: ABG PCO2 (T) < 10.0 mmHg (32.0-45.0)
[2017-06-23] MEDS ORDERED: potassium CL 20mEq in D5-1/2NS 1,000 ML IV PRN (15:44)
[2017-06-23] MEDS ORDERED: dextrose ORAL solution 15 GM/59 ML bottle PO PRN ×2 (16:00)
[2017-06-23] MEDS ORDERED: dextrose 50%-water 50ml dispensing syringe IV PRN ×2 (16:00)
[2017-06-23] MEDS ORDERED: MESSAGE TO PHARMACY PO ONE (16:00)
[2017-06-23] MEDS ORDERED: glucagon, human recombinant 1mg kit SUBCUT PRN (16:00)
[2017-06-23 18:30] VITALS: BP 93/61
[2017-06-23] MEDS: insulin Lispro (HumaLOG) vial - multi-dose SQ SCH (19:05)
[2017-06-23] MEDS ORDERED: insulin glargine (Lantus) pen - multi-dose SQ SCH (21:00)
[2017-06-23] MEDS ORDERED: dextrose 5%-1/2 normal saline 1,000 ML IV SCH (22:05)
[2017-06-23 22:39] VITALS: BP 96/53
[2017-06-24 05:41] LABS: BASOPHILS % (AUTO) 0.2 % (0-1); EOSINOPHILS % (AUTO) 0.8 % (0-6); HEMATOCRIT 34.9 % (35.0-45.0); LYMPHOCYTES % (AUTO) 33.8 % (21-51); MEAN CORPUSCULAR HGB CONC 34.4 % (33.0-36.5); MEAN CORPUSCULAR VOLUME 90.2 FL (78-98); MEAN PLATELET VOLUME 7.6 FL (7.4-10.4); MONOCYTES # (AUTO) 0.5 X10'3 (0-0.9); NEUTROPHILS # (AUTO) 3.4 X10'3 (1.8-7.7); NEUTROPHILS % (AUTO) 57.2 % (42-75); PLATELET COUNT 179 X10'3 (140-440); RED BLOOD COUNT 3.87 X10'6 (4.20-5.60); RED CELL DISTRIBUTION WIDTH 17.7 % (11.5-14.5); WHITE BLOOD COUNT 5.9 X10'3 (4.5-11.0)
[2017-06-24 06:03] LABS: ALANINE AMINOTRANSFERASE 22 U/L (12-78); ALBUMIN/GLOBULIN RATIO 0.8 (1.1-1.5); ALKALINE PHOSPHATASE 64 IU/L (46-116); ANION GAP 9 (8-16); ASPARTATE AMINO TRANSFERASE 21 U/L (10-37); BILIRUBIN,TOTAL 0.2 MG/DL (0.1-1.0); BLOOD UREA NITROGEN 9 MG/DL (7-18); BUN/CREATININE RATIO 16.7 (6.6-38.0); CALCIUM 7.7 MG/DL (8.5-10.1); CHLORIDE 115 MMOL/L (99-107); CREATININE 0.54 MG/DL (0.40-0.90); GLUCOSE 74 MG/DL (70-104); SODIUM 147 MMOL/L (135-145); TOTAL CARBON DIOXIDE 23.4 MMOL/L (24-32); TOTAL PROTEIN 4.6 G/DL (6.4-8.2); eGFR > 90 ML/MIN
[2017-06-24 06:30] VITALS: BP 101/64
[2017-06-24 06:30] LABS: POTASSIUM 2.7 MMOL/L (3.5-5.1)
[2017-06-24] MEDS: morphine 4 MG/ML inj SYRINge IV PRN ×2 (07:06→11:27)
[2017-06-24] MEDS: potassium Cl 20 mEq SR tablet PO PRN ×3 (07:14→15:38)
[2017-06-24] MEDS ORDERED: pantoprazole 40mg Tablet.DR PO SCH (07:30)
[2017-06-24] MEDS: K and/or MAG REPLACEMENT MC SCH (08:00)
[2017-06-24] MEDS: heparin, porcine 5000 units/ml vial SQ SCH (08:00)
[2017-06-24 11:24] VITALS: BP 102/59
[2017-06-24] MEDS: insulin Lispro (HumaLOG) vial - multi-dose SQ SCH (13:29)
[2017-06-24 15:00] VITALS: BP 96/53
== END 2017-06-24 16:26 | disposition home or self-care (01) | DRG 420 ==
LOC: ER 01:46 → ED HOLD 10:17 → EDBEDREQSVC 20:10 → EDBEDREQTM 20:10 → PCU 3S 21:05
PROVIDERS: ADMIT Internal Medicine Critical Care Medicine; ATTEND Internal Medicine Critical Care Medicine
DX: E10.10 Type 1 diabetes mellitus with ketoacidosis without coma (principal); E10.42 Type 1 diabetes mellitus with diabetic polyneuropathy; F41.9 Anxiety disorder, unspecified; J45.909 Unspecified asthma, uncomplicated; G89.29 Other chronic pain; F12.90 Cannabis use, unspecified, uncomplicated; F14.90 Cocaine use, unspecified, uncomplicated; F15.90 Other stimulant use, unspecified, uncomplicated; Z98.51 Tubal ligation status; Z88.5 Allergy status to narcotic agent; Z79.4 Long term (current) use of insulin; Z79.899 Other long term (current) drug therapy; Z83.3 Family history of diabetes mellitus
CPT/HCPCS: 36415; 36600; 80048; 80053; 80305; 81001; 81025; 82009; 82330; 82803; 82948; 83605; 83735; 84100; 84145; 84439; 84443; 85018; 85025; 85610; 85730; 87070; 96360; 99291; A4353; C9113; J1644; J1815; J2270; J3480; J7030; J7060; J7131